=== PATIENT | female | born 1990 | race Two or more races ===

== ENCOUNTER 2023-03-24 05:54 | Emergency (ER) | payer OTHER ==
[~2023-03-24] VITALS: Ht 162.6 cm; Wt 69.9 kg
[2023-03-24] MEDS ORDERED: ZITHROMAX500 MG PO (09:09)
== END 2023-03-24 09:14 | disposition home or self-care (01) ==
LOC: ER 05:54
DX: O99.512 Diseases of the respiratory system complicating pregnancy, second trimester (principal); J06.9 Acute upper respiratory infection, unspecified; Z3A.25 25 weeks gestation of pregnancy; Z88.0 Allergy status to penicillin; Z20.822 Contact with and (suspected) exposure to COVID-19

== ENCOUNTER 2023-07-02 10:32 | Inpatient (IN) | payer OTHER ==
[~2023-07-02] VITALS: Ht 162.6 cm; Wt 81.2 kg
[~2023-07-02 10:32] MED LIST: ZITHROMAX500 MG PO
[2023-07-08] MEDS ORDERED: PRENA1 TRUE CO1 EACH (07:30)
== END 2023-07-10 13:57 | disposition home or self-care (01) | DRG 807 ==
LOC: LDR 07-08 04:36 → OB/GYN 07-08 04:36
PROVIDERS: ADMIT Specialist; ATTEND Specialist
PROC: 10E0XZZ Delivery of Products of Conception, External Approach (ICD-10-PCS; principal; 2023-07-08)
PROC: 0KQM0ZZ Repair Perineum Muscle, Open Approach (ICD-10-PCS; 2023-07-08)
PROC: 0W8NXZZ Division of Female Perineum, External Approach (ICD-10-PCS; 2023-07-08)
PROC: 4A1HXCZ Monitoring of Products of Conception, Cardiac Rate, External Approach (ICD-10-PCS; 2023-07-08)
DX: O70.1 Second degree perineal laceration during delivery (principal); Z37.0 Single live birth; Z3A.40 40 weeks gestation of pregnancy; Z20.822 Contact with and (suspected) exposure to COVID-19

== ENCOUNTER 2023-07-15 05:57 | Emergency (ER) | payer OTHER ==
[~2023-07-15] VITALS: Ht 154.9 cm; Wt 64.0 kg
[~2023-07-15 05:57] MED LIST changes: +PRENA1 TRUE CO1 EACH
[2023-07-15] MEDS ORDERED: PRENA1 CHEW TA1.4 MG PO (06:16)
== END 2023-07-15 09:28 | disposition home or self-care (01) ==
LOC: ER 05:57
DX: K59.00 Constipation, unspecified (principal)